=== PATIENT | male | born 1995 | race Caucasian/White ===

== ENCOUNTER 2017-02-17 11:20 | Emergency (ER) | payer SELFPAY ==
[~2017-02-17] VITALS: Ht 170.2 cm; Wt 99.8 kg
[~2017-02-17 11:20] MED LIST: CEPH-507 PO; HYDR-1231 PO; TRM50T PO; [UNRECOGNIZED DRUG - REMARK]
--- OUTSIDE RECORDS SUMMARY | 2017-02-17 11:27 | XMS REPORT | Continuity of Care Document ---
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 MIGRAINOSUS 07/31/2011 BERYL HINOJOSA DO K 346.10 MIGRAINE WITHOUT AURA WITHOUT MENTION OF INTRACTABLE MIGRAINE WITHOUT MENTION OF STATUS MIGRAINOSUS 07/31/2011 CHERELLE VALENZUELA MD 346.10 MIGRAINE WITHOUT AURA WITHOUT MENTION OF INTRACTABLE MIGRAINE WITHOUT MENTION OF STATUS MIGRAINOSUS 09/29/2011 300.00 ANXIETY UNSPEC 09/29/2011 719.46 KNEE PAIN 09/29/2011 300.00 ANXIETY UNSPEC 09/29/2011 719.46 KNEE PAIN 09/29/2011 HINOJOSA DOMALIHAA K 300.00 ANXIETY UNSPEC 09/29/2011 HINOJOSA DO BERYL K 719.46 KNEE PAIN 09/29/2011 BARI CANO APRN R 300.00 ANXIETY UNSPEC 09/29/2011 BARI CANO APRN R 719.46 KNEE PAIN 09/29/2011 BERYL HINOJOSA DO K 300.00 ANXIETY UNSPEC 09/29/2011 HINOJOSA MALIHA STONERA K 719.46 KNEE PAIN 09/29/2011 ERIC CANCHOLA APRN R 300.00 ANXIETY UNSPEC 09/29/2011 JESIKA DIRECTOR OF HOUSING AND ENERGY SERVICES, ERIC R 719.46 KNEE PAIN 09/29/2011 CARLYN JOHNSON DIRECTOR OF HOUSING AND ENERGY SERVICES, JHONNY N 300.00 ANXIETY UNSPEC 09/29/2011 CARLYN JOHNSON DIRECTOR OF HOUSING AND ENERGY SERVICES, JHONNY N 719.46 KNEE PAIN 09/29/2011 JESIKA DIRECTOR OF HOUSING AND ENERGY SERVICES, ERIC R 300.00 ANXIETY UNSPEC 09/29/2011 JESIKA DIRECTOR OF HOUSING AND ENERGY SERVICES, ERIC R 719.46 KNEE PAIN 09/29/2011 MADL DIRECTOR OF HOUSING AND ENERGY SERVICES, YANICK L 300.00 ANXIETY UNSPEC 09/29/2011 MADL DIRECTOR OF HOUSING AND ENERGY SERVICES, YANICK L 719.46 KNEE PAIN 09/29/2011 RACHAEL DIRECTOR OF HOUSING AND ENERGY SERVICES, BARI R 300.00 ANXIETY UNSPEC 09/29/2011 CANO DIRECTOR OF HOUSING AND ENERGY SERVICES, BARI R 719.46 KNEE PAIN 09/29/2011 LIANGL DIRECTOR OF HOUSING AND ENERGY SERVICES, YANICK L 300.00 ANXIETY UNSPEC 09/29/2011 LIANGL DIRECTOR OF HOUSING AND ENERGY SERVICES, YANICK L 719.46 KNEE PAIN 09/29/2011 ASHISH STONER BERYL K 300.00 ANXIETY UNSPEC 09/29/2011 ASHISH STONER BERYL K 719.46 KNEE PAIN 09/29/2011 CHERELLE VALENZUELA MD 300.00 ANXIETY UNSPEC 09/29/2011 CHERELLE VALENZUELA MD 719.46 KNEE PAIN 10/02/2011 008.8 INTESTINAL INFECTION DUE TO OTHER ORGANISM NOT ELSEWHERE CLASSIFIED 10/02/2011 008.8 INTESTINAL INFECTION DUE TO OTHER ORGANISM NOT ELSEWHERE CLASSIFIED 10/02/2011 ASHISH STONER BERYL K 008.8 INTESTINAL INFECTION DUE TO OTHER ORGANISM NOT ELSEWHERE CLASSIFIED 10/02/2011 REJI CANO APRNRICIA R 008.8 INTESTINAL INFECTION DUE TO OTHER ORGANISM NOT ELSEWHERE CLASSIFIED 10/02/2011 ASHISH STONER, BERYL K 008.8 INTESTINAL INFECTION DUE TO OTHER ORGANISM NOT ELSEWHERE CLASSIFIED 10/02/2011 JESIKA GRAHAMN ERIC R 008.8 INTESTINAL INFECTION DUE TO OTHER ORGANISM NOT ELSEWHERE CLASSIFIED 10/02/2011 ALCOCERKIM JOHNSON DIRECTOR OF HOUSING AND ENERGY SERVICES, JHONNY N 008.8 INTESTINAL INFECTION DUE TO OTHER ORGANISM NOT ELSEWHERE CLASSIFIED 10/02/2011 JESIKA GRAHAMN ERIC R 008.8 INTESTINAL INFECTION DUE TO OTHER ORGANISM NOT ELSEWHERE CLASSIFIED 10/02/2011 ISABELA DIRECTOR OF HOUSING AND ENERGY SERVICESGRISEL ClarkA L 008.8 INTESTINAL INFECTION DUE TO OTHER ORGANISM NOT ELSEWHERE CLASSIFIED 10/02/2011 DELICIA CANO APRNIA R 008.8 INTESTINAL INFECTION DUE TO OTHER ORGANISM NOT ELSEWHERE CLASSIFIED 10/02/2011 MADL DIRECTOR OF HOUSING AND ENERGY SERVICES, YANICK L 008.8 INTESTINAL INFECTION DUE TO OTHER ORGANISM NOT ELSEWHERE CLASSIFIED 10/02/2011 HINOJOSA DO, BERYL K 008.8 INTESTINAL INFECTION DUE TO OTHER ORGANISM NOT ELSEWHERE CLASSIFIED 10/02/2011 CHERELLE VALENZUELA MD 008.8 INTESTINAL INFECTION DUE TO OTHER ORGANISM NOT ELSEWHERE CLASSIFIED 12/10/2011 477.0 ALLERGIC RHINITIS DUE TO POLLEN 12/10/2011 477.0 ALLERGIC RHINITIS DUE TO POLLEN 12/10/2011 HINOJOSA DO, BERYL K 477.0 ALLERGIC RHINITIS DUE TO POLLEN 12/10/2011 RACHAEL DIRECTOR OF HOUSING AND ENERGY SERVICES, BARI R 477.0 ALLERGIC RHINITIS DUE TO POLLEN 12/10/2011 HINOJOSA DO, BERYL K 477.0 ALLERGIC RHINITIS DUE TO POLLEN 12/10/2011 JESIKA GARCÍA, ERIC R 477.0 ALLERGIC RHINITIS DUE TO POLLEN 12/10/2011 CARLYN JOHNSON APRN, JHONNY N 477.0 ALLERGIC RHINITIS DUE TO POLLEN 12/10/2011 JESIKA GARCÍA, ERIC R 477.0 ALLERGIC RHINITIS DUE TO POLLEN 12/10/2011 ISABELA DIRECTOR OF HOUSING AND ENERGY SERVICES, YANICK L 477.0 ALLERGIC RHINITIS DUE TO POLLEN 12/10/2011 RACHAEL DIRECTOR OF HOUSING AND ENERGY SERVICESREJI ClarkBARI R 477.0 ALLERGIC RHINITIS DUE TO POLLEN 12/10/2011 LIANGL DIRECTOR OF HOUSING AND ENERGY SERVICES, YANICK L 477.0 ALLERGIC RHINITIS DUE TO POLLEN 12/10/2011 HINOJOSA DO, BERYL K 477.0 ALLERGIC RHINITIS DUE TO POLLEN 12/10/2011 CHERELLE VALENZUELA MD 477.0 ALLERGIC RHINITIS DUE TO POLLEN 12/14/2011 789.00 ABDOMINAL PAIN UNSPECIFIED SITE 12/14/2011 789.00 ABDOMINAL PAIN UNSPECIFIED SITE 12/14/2011 HINOJOSA DO, BERYL K 789.00 ABDOMINAL PAIN UNSPECIFIED SITE 12/14/2011 REJI CANO APRNRICIA R 789.00 ABDOMINAL PAIN UNSPECIFIED SITE 12/14/2011 HINOJOSA DO, BERYL K 789.00 ABDOMINAL PAIN UNSPECIFIED SITE 12/14/2011 JESIKA GARCÍA, ERIC R 789.00 ABDOMINAL PAIN UNSPECIFIED SITE 12/14/2011 CARLYN JOHNSON APRN, JHONNY N 789.00 ABDOMINAL PAIN UNSPECIFIED SITE 12/14/2011 JESIKA GARCÍA, ERIC R 789.00 ABDOMINAL PAIN UNSPECIFIED SITE 12/14/2011 LIANGL DIRECTOR OF HOUSING AND ENERGY SERVICES, YANICK L 789.00 ABDOMINAL PAIN UNSPECIFIED SITE 12/14/2011 DELICIA CANO APRNIA R 789.00 ABDOMINAL PAIN UNSPECIFIED SITE 12/14/2011 MADL DIRECTOR OF HOUSING AND ENERGY SERVICES, YANICK L 789.00 ABDOMINAL PAIN UNSPECIFIED SITE 12/14/2011 HINOJOSA DO, BERYL K 789.00 ABDOMINAL PAIN UNSPECIFIED SITE 12/14/2011 NICOLAS CRAMER, CHERELLE 789.00 ABDOMINAL PAIN UNSPECIFIED SITE 04/27/2012 372.30 CONJUNCTIVITIS UNSPECIFIED 04/27/2012 465.9 UPPER RESPIRATORY INFECTION 04/27/2012 372.30 CONJUNCTIVITIS UNSPECIFIED 04/27/2012 465.9 UPPER RESPIRATORY INFECTION 04/27/2012 HINOJOSA DO, BERYL K 372.30 CONJUNCTIVITIS UNSPECIFIED 04/27/2012 HINOJOSA DO, BERYL K 465.9 UPPER RESPIRATORY INFECTION 04/27/2012 REJI CANO APRNRICIA R 372.30 CONJUNCTIVITIS UNSPECIFIED 04/27/2012 REJI CANO APRNRICIA R 465.9 UPPER RESPIRATORY INFECTION 04/27/2012 HINOJOSA DO, BERYL K 372.30 CONJUNCTIVITIS UNSPECIFIED 04/27/2012 HINOJOSA DO, BERYL K 465.9 UPPER RESPIRATORY INFECTION 04/27/2012 JESIKA DIRECTOR OF HOUSING AND ENERGY SERVICES, ERIC R 372.30 CONJUNCTIVITIS UNSPECIFIED 04/27/2012 JESIKA DIRECTOR OF HOUSING AND ENERGY SERVICES, ERIC R 465.9 UPPER RESPIRATORY INFECTION 04/27/2012 ALCOCERKIM BARTLETTERO DIRECTOR OF HOUSING AND ENERGY SERVICES, JHONNY N 372.30 CONJUNCTIVITIS UNSPECIFIED 04/27/2012 ALCOCER TRIERO DIRECTOR OF HOUSING AND ENERGY SERVICES, JHONNY N 465.9 UPPER RESPIRATORY INFECTION 04/27/2012 JESIKA DIRECTOR OF HOUSING AND ENERGY SERVICES, ERIC R 372.30 CONJUNCTIVITIS UNSPECIFIED 04/27/2012 JESIKA DIRECTOR OF HOUSING AND ENERGY SERVICES, ERIC R 465.9 UPPER RESPIRATORY INFECTION 04/27/2012 ISABELA DIRECTOR OF HOUSING AND ENERGY SERVICES, YANICK L 372.30 CONJUNCTIVITIS UNSPECIFIED 04/27/2012 ISABELA GARCÍA, YANICK L 465.9 UPPER RESPIRATORY INFECTION 04/27/2012 RACHAEL GARCÍA BARI R 372.30 CONJUNCTIVITIS UNSPECIFIED 04/27/2012 RACHAEL GARCÍA BARI R 465.9 UPPER RESPIRATORY INFECTION 04/27/2012 OXANA MAR APRNWNYA L 372.30 CONJUNCTIVITIS UNSPECIFIED 04/27/2012 MADL DIRECTOR OF HOUSING AND ENERGY SERVICES, YANICK L 465.9 UPPER RESPIRATORY INFECTION 04/27/2012 HINOJOSA DO, BERYL K 372.30 CONJUNCTIVITIS UNSPECIFIED 04/27/2012 HINOJOSA DO, BERYL K 465.9 UPPER RESPIRATORY INFECTION 04/27/2012 NICOLAS CRAMER, CHERELLE 372.30 CONJUNCTIVITIS UNSPECIFIED 04/27/2012 NICOLAS CRAMER, CHERELLE 465.9 UPPER RESPIRATORY INFECTION 05/26/2012 787.01 NAUSEA WITH VOMITING 05/26/2012 787.91 DIARRHEA 05/26/2012 787.01 NAUSEA WITH VOMITING 05/26/2012 787.91 DIARRHEA 05/26/2012 HINOJOSA DO, BERYL K 787.01 NAUSEA WITH VOMITING 05/26/2012 HINOJOSA DO, BERYL K 787.91 DIARRHEA 05/26/2012 RACHAEL DIRECTOR OF HOUSING AND ENERGY SERVICES BARI R 787.01 NAUSEA WITH VOMITING 05/26/2012 RACHAEL GARCÍA BARI R 787.91 DIARRHEA 05/26/2012 HINOJOSA DO, BERYL K 787.01 NAUSEA WITH VOMITING 05/26/2012 HINOJOSA DO, BERYL K 787.91 DIARRHEA 05/26/2012 JESIKA DIRECTOR OF HOUSING AND ENERGY SERVICES, ERIC R 787.01 NAUSEA WITH VOMITING 05/26/2012 JESIKA DIRECTOR OF HOUSING AND ENERGY SERVICES, ERIC R 787.91 DIARRHEA 05/26/2012 ALCOCER TRIERO DIRECTOR OF HOUSING AND ENERGY SERVICES, JHONNY N 787.01 NAUSEA WITH VOMITING 05/26/2012 ALCOCER CASHERO DIRECTOR OF HOUSING AND ENERGY SERVICES, JHONNY N 787.91 DIARRHEA 05/26/2012 JESIKA DIRECTOR OF HOUSING AND ENERGY SERVICES, ERIC R 787.01 NAUSEA WITH VOMITING 05/26/2012 JESIKA DIRECTOR OF HOUSING AND ENERGY SERVICES ERIC R 787.91 DIARRHEA 05/26/2012 MADL DIRECTOR OF HOUSING AND ENERGY SERVICES, YANICK L 787.01 NAUSEA WITH VOMITING 05/26/2012 MADL DIRECTOR OF HOUSING AND ENERGY SERVICES, YANICK L 787.91 DIARRHEA 05/26/2012 RACHAEL DIRECTOR OF HOUSING AND ENERGY SERVICES BARI R 787.01 NAUSEA WITH VOMITING 05/26/2012 RACHAEL GARCÍA BARI R 787.91 DIARRHEA 05/26/2012 MADL DIRECTOR OF HOUSING AND ENERGY SERVICES, YANICK L 787.01 NAUSEA WITH VOMITING 05/26/2012 MADL DIRECTOR OF HOUSING AND ENERGY SERVICES, YANICK L 787.91 DIARRHEA 05/26/2012 HINOJOSA DO, BERYL K 787.01 NAUSEA WITH VOMITING 05/26/2012 HINOJOSA DO, BERYL K 787.91 DIARRHEA 05/26/2012 NICOLAS CRAMER, CHERELLE 787.01 NAUSEA WITH VOMITING 05/26/2012 NICOLAS CRAMER, CHERELLE 787.91 DIARRHEA 06/24/2012 462 PHARYNGITIS ACUTE 06/24/2012 466.0 BRONCHITIS, ACUTE 06/24/2012 462 PHARYNGITIS ACUTE 06/24/2012 466.0 BRONCHITIS, ACUTE 06/24/2012 HINOJOSA DO, BERYL K 462 PHARYNGITIS ACUTE 06/24/2012 HINOJOSA DO, BERYL K 466.0 BRONCHITIS, ACUTE 06/24/2012 CANO DIRECTOR OF HOUSING AND ENERGY SERVICES, BARI R 462 PHARYNGITIS ACUTE 06/24/2012 CANO DIRECTOR OF HOUSING AND ENERGY SERVICES, BARI R 466.0 BRONCHITIS, ACUTE 06/24/2012 HINOJOSA DO, BERYL K 462 PHARYNGITIS ACUTE 06/24/2012 HINOJOSA DO, BERYL K 466.0 BRONCHITIS, ACUTE 06/24/2012 JESIKA DIRECTOR OF HOUSING AND ENERGY SERVICES, ERIC R 462 PHARYNGITIS ACUTE 06/24/2012 JESIKA DIRECTOR OF HOUSING AND ENERGY SERVICES, ERIC R 466.0 BRONCHITIS, ACUTE 06/24/2012 ALCOCER CASHERO DIRECTOR OF HOUSING AND ENERGY SERVICES, JHONNY N 462 PHARYNGITIS ACUTE 06/24/2012 ALCOECR CASHERO DIRECTOR OF HOUSING AND ENERGY SERVICES, JHONNY N 466.0 BRONCHITIS, ACUTE 06/24/2012 JESIKA DIRECTOR OF HOUSING AND ENERGY SERVICES, ERIC R 462 PHARYNGITIS ACUTE 06/24/2012 JESIKA DIRECTOR OF HOUSING AND ENERGY SERVICES, ERIC R 466.0 BRONCHITIS, ACUTE 06/24/2012 MADL DIRECTOR OF HOUSING AND ENERGY SERVICES, YANICK L 462 PHARYNGITIS ACUTE 06/24/2012 MADL DIRECTOR OF HOUSING AND ENERGY SERVICES, YANICK L 466.0 BRONCHITIS, ACUTE 06/24/2012 RACHAEL DIRECTOR OF HOUSING AND ENERGY SERVICES, BARI R 462 PHARYNGITIS ACUTE 06/24/2012 CANO DIRECTOR OF HOUSING AND ENERGY SERVICES, BARI R 466.0 BRONCHITIS, ACUTE 06/24/2012 MADL DIRECTOR OF HOUSING AND ENERGY SERVICES, YANICK L 462 PHARYNGITIS ACUTE 06/24/2012 MADL DIRECTOR OF HOUSING AND ENERGY SERVICES, YANICK L 466.0 BRONCHITIS, ACUTE 06/24/2012 HINOJOSA DO, BERYL K 462 PHARYNGITIS ACUTE 06/24/2012 HINOJOSA DO, BERYL K 466.0 BRONCHITIS, ACUTE 06/24/2012 NICOLAS CRAMER, CHERELLE 462 PHARYNGITIS ACUTE 06/24/2012 NICOLAS CRAMER, CHERELLE 466.0 BRONCHITIS, ACUTE 07/10/2012 Ot 786.50 07/10/2012 Ot 786.52 07/11/2012 733.6 TIETZE'S DISEASE 07/11/2012 733.6 TIETZE'S DISEASE 07/11/2012 HINOJOSA DO BERYL K 733.6 TIETZE'S DISEASE 07/11/2012 RACHAEL DIRECTOR OF HOUSING AND ENERGY SERVICES, BARI R 733.6 TIETZE'S DISEASE 07/11/2012 HINOJOSA DO BERYL K 733.6 TIETZE'S DISEASE 07/11/2012 JESIKA DIRECTOR OF HOUSING AND ENERGY SERVICES, ERIC R 733.6 TIETZE'S DISEASE 07/11/2012 CARLYN JOHNSON DIRECTOR OF HOUSING AND ENERGY SERVICES, JHONNY N 733.6 TIETZE'S DISEASE 07/11/2012 JESIKA DIRECTOR OF HOUSING AND ENERGY SERVICES, ERIC R 733.6 TIETZE'S DISEASE 07/11/2012 MADL DIRECTOR OF HOUSING AND ENERGY SERVICES, YANICK L 733.6 TIETZE'S DISEASE 07/11/2012 REJI CANO APRNRICIA R 733.6 TIETZE'S DISEASE 07/11/2012 MADL DIRECTOR OF HOUSING AND ENERGY SERVICES, YANICK L 733.6 TIETZE'S DISEASE 07/11/2012 MALIHA HINOJOSA DOA K 733.6 TIETZE'S DISEASE 07/11/2012 NICOLAS CRAMER, CHERELLE 733.6 TIETZE'S DISEASE 02/05/2013 ANGY DURÁN Ot 692.71 05/01/2013 305.1 TOBACCO ABUSE 05/01/2013 461.9 SINUSITIS ACUTE 05/01/2013 786.2 COUGH 05/01/2013 MALIHA HINOJOSA DOA K 305.1 TOBACCO ABUSE 05/01/2013 MALIHA HINOJOSA DOA K 461.9 SINUSITIS ACUTE 05/01/2013 HINOJOSA DO BERYL K 786.2 COUGH 05/01/2013 BARI CANO APRN R 305.1 TOBACCO ABUSE 05/01/2013 BARI CANO APRN R 461.9 SINUSITIS ACUTE 05/01/2013 REJI CANO APRNRICIA R 786.2 COUGH 05/01/2013 ASHISH STONER BERYL K 305.1 TOBACCO ABUSE 05/01/2013 ASHISH STONER BERYL K 461.9 SINUSITIS ACUTE 05/01/2013 HINOJOSA DO, BERYL K 786.2 COUGH 05/01/2013 JESIKA DIRECTOR OF HOUSING AND ENERGY SERVICES, ERIC R 305.1 TOBACCO ABUSE 05/01/2013 JESIKA DIRECTOR OF HOUSING AND ENERGY SERVICES, ERIC R 461.9 SINUSITIS ACUTE 05/01/2013 JESIKA DIRECTOR OF HOUSING AND ENERGY SERVICES, ERIC R 786.2 COUGH 05/01/2013 ALCOCER CASHERO DIRECTOR OF HOUSING AND ENERGY SERVICES, JHONNY N 305.1 TOBACCO ABUSE 05/01/2013 ALCOCER CASHERO DIRECTOR OF HOUSING AND ENERGY SERVICES, JHONNY N 461.9 SINUSITIS ACUTE 05/01/2013 ALCOCER CASHERO DIRECTOR OF HOUSING AND ENERGY SERVICES, JHONNY N 786.2 COUGH 05/01/2013 JESIKA DIRECTOR OF HOUSING AND ENERGY SERVICES, ERIC R 305.1 TOBACCO ABUSE 05/01/2013 JESIKA DIRECTOR OF HOUSING AND ENERGY SERVICES, ERIC R 461.9 SINUSITIS ACUTE 05/01/2013 JESIKA DIRECTOR OF HOUSING AND ENERGY SERVICES, ERIC R 786.2 COUGH 05/01/2013 MADL DIRECTOR OF HOUSING AND ENERGY SERVICES, YANICK L 305.1 TOBACCO ABUSE 05/01/2013 MADL DIRECTOR OF HOUSING AND ENERGY SERVICES, YANICK L 461.9 SINUSITIS ACUTE 05/01/2013 MADL DIRECTOR OF HOUSING AND ENERGY SERVICES, YANICK L 786.2 COUGH 05/01/2013 CANO DIRECTOR OF HOUSING AND ENERGY SERVICES, BARI R 305.1 TOBACCO ABUSE 05/01/2013 CANO DIRECTOR OF HOUSING AND ENERGY SERVICES, BARI R 461.9 SINUSITIS ACUTE 05/01/2013 CANO DIRECTOR OF HOUSING AND ENERGY SERVICES, BARI R 786.2 COUGH 05/01/2013 MADL DIRECTOR OF HOUSING AND ENERGY SERVICES, YANICK L 305.1 TOBACCO ABUSE 05/01/2013 MADL DIRECTOR OF HOUSING AND ENERGY SERVICES, YANICK L 461.9 SINUSITIS ACUTE 05/01/2013 MADL DIRECTOR OF HOUSING AND ENERGY SERVICES, YANICK L 786.2 COUGH 05/01/2013 HINOJOSA DO, BERYL K 305.1 TOBACCO ABUSE 05/01/2013 HINOJOSA DO, BERYL K 461.9 SINUSITIS ACUTE 05/01/2013 HINOJOSA DO, BERYL K 786.2 COUGH 07/24/2013 CANO DIRECTOR OF HOUSING AND ENERGY SERVICES, BARI R 380.4 CERUMEN IMPACTION 07/24/2013 HINOOJSA DO, BERYL K 380.4 CERUMEN IMPACTION 07/24/2013 JESIKA DIRECTOR OF HOUSING AND ENERGY SERVICES, ERIC R 380.4 CERUMEN IMPACTION 07/24/2013 ALCOCER TRIERO DIRECTOR OF HOUSING AND ENERGY SERVICES, JHONNY N 380.4 CERUMEN IMPACTION 07/24/2013 JESIKA DIRECTOR OF HOUSING AND ENERGY SERVICES, ERIC R 380.4 CERUMEN IMPACTION 07/24/2013 GRISEL MAR APRNA L 380.4 CERUMEN IMPACTION 07/24/2013 BARI CANO APRN R 380.4 CERUMEN IMPACTION 07/24/2013 MADL DIRECTOR OF HOUSING AND ENERGY SERVICES, YANICK L 380.4 CERUMEN IMPACTION 07/24/2013 HINOJOSA DO, BERYL K 380.4 CERUMEN IMPACTION 12/01/2013 HINOJOSA DO, BERYL K 293.84 ANXIETY DISORDER IN CONDITIONS CLASSIFIED ELSEWHERE 12/01/2013 HINOJOSA DO, BERYL K 346.90 MIGRAINE UNSPECIFIED WITHOUT MENTION OF INTRACTABLE MIGRAINE WITHOUT MENTION OF STATUS MIGRAINOSUS 12/01/2013 HINOJOSA DO, BERYL K 799.22 IRRITABILITY 12/01/2013 STEPHANIE CANCHOLA APRNINA R 293.84 ANXIETY DISORDER IN CONDITIONS CLASSIFIED ELSEWHERE 12/01/2013 ERIC CANCHOLA APRN R 346.90 MIGRAINE UNSPECIFIED WITHOUT MENTION OF INTRACTABLE MIGRAINE WITHOUT MENTION OF STATUS MIGRAINOSUS 12/01/2013 STEPHANIE CANCHOLA APRNINA R 799.22 IRRITABILITY 12/01/2013 JHONNY ESPINOSA APRN N 293.84 ANXIETY DISORDER IN CONDITIONS CLASSIFIED ELSEWHERE 12/01/2013 BOBBY ESPINOSA APRNCY N 346.90 MIGRAINE UNSPECIFIED WITHOUT MENTION OF INTRACTABLE MIGRAINE WITHOUT MENTION OF STATUS MIGRAINOSUS 12/01/2013 BOBBY ESPINOSA APRNCY N 799.22 IRRITABILITY 12/01/2013 STEPHANIE CANCHOLA APRNINA R 293.84 ANXIETY DISORDER IN CONDITIONS CLASSIFIED ELSEWHERE 12/01/2013 STEPHANIE CANCHOLA APRNINA R 346.90 MIGRAINE UNSPECIFIED WITHOUT MENTION OF INTRACTABLE MIGRAINE WITHOUT MENTION OF STATUS MIGRAINOSUS 12/01/2013 STEPHANIE CANCHOLA APRNINA R 799.22 IRRITABILITY 12/01/2013 GRISEL MAR APRNA L 293.84 ANXIETY DISORDER IN CONDITIONS CLASSIFIED ELSEWHERE 12/01/2013 GRISEL MAR APRNA L 346.90 MIGRAINE UNSPECIFIED WITHOUT MENTION OF INTRACTABLE MIGRAINE WITHOUT MENTION OF STATUS MIGRAINOSUS 12/01/2013 NARA MAR APRNNYA L 799.22 IRRITABILITY 12/01/2013 BARI CANO APRN R 293.84 ANXIETY DISORDER IN CONDITIONS CLASSIFIED ELSEWHERE 12/01/2013 BARI CANO APRN R 346.90 MIGRAINE UNSPECIFIED WITHOUT MENTION OF INTRACTABLE MIGRAINE WITHOUT MENTION OF STATUS MIGRAINOSUS 12/01/2013 CANO DIRECTOR OF HOUSING AND ENERGY SERVICES, BARI R 799.22 IRRITABILITY 12/01/2013 MADL DIRECTOR OF HOUSING AND ENERGY SERVICES, YANICK L 293.84 ANXIETY DISORDER IN CONDITIONS CLASSIFIED ELSEWHERE 12/01/2013 MADL DIRECTOR OF HOUSING AND ENERGY SERVICES, YANICK L 346.90 MIGRAINE UNSPECIFIED WITHOUT MENTION OF INTRACTABLE MIGRAINE WITHOUT MENTION OF STATUS MIGRAINOSUS 12/01/2013 MADL DIRECTOR OF HOUSING AND ENERGY SERVICES, YANICK L 799.22 IRRITABILITY 12/01/2013 HINOJOSA , BERYL K 293.84 ANXIETY DISORDER IN CONDITIONS CLASSIFIED ELSEWHERE 12/01/2013 HINOJOSA DO, BERYL K 346.90 MIGRAINE UNSPECIFIED WITHOUT MENTION OF INTRACTABLE MIGRAINE WITHOUT MENTION OF STATUS MIGRAINOSUS 12/01/2013 ASHISH STONER, BERYL K 799.22 IRRITABILITY 05/08/2014 JESIKA GARCÍA, ERIC R 462 PHARYNGITIS ACUTE 05/08/2014 JESIKA GARCÍA, ERIC R 786.2 COUGH 05/08/2014 CARLYN JOHNSON APRN, JHONNY N 462 PHARYNGITIS ACUTE 05/08/2014 CARLYN JOHNSON APRN, JHONNY N 786.2 COUGH 05/08/2014 JESIKA GARCÍA, ERIC R 462 PHARYNGITIS ACUTE 05/08/2014 JESIKA GRAHAMN, ERIC R 786.2 COUGH 05/08/2014 MADL DIRECTOR OF HOUSING AND ENERGY SERVICES, YANICK L 462 PHARYNGITIS ACUTE 05/08/2014 MADL DIRECTOR OF HOUSING AND ENERGY SERVICES, YANICK L 786.2 COUGH 05/08/2014 REJI CANO APRNRICIA R 462 PHARYNGITIS ACUTE 05/08/2014 RACHAEL GARCÍA BARI R 786.2 COUGH 05/08/2014 MADL DIRECTOR OF HOUSING AND ENERGY SERVICES, YANICK L 462 PHARYNGITIS ACUTE 05/08/2014 MADL DIRECTOR OF HOUSING AND ENERGY SERVICES, YANICK L 786.2 COUGH 05/08/2014 HINOJOSA DO, BERYL K 462 PHARYNGITIS ACUTE 05/08/2014 ASHISH STONER, BERYL K 786.2 COUGH 05/29/2014 CARLYN JOHNSON DIRECTOR OF HOUSING AND ENERGY SERVICES, JHONNY N 388.70 OTALGIA UNSPECIFIED 05/29/2014 JESIKA GARCÍA, ERIC R 388.70 OTALGIA UNSPECIFIED 05/29/2014 MADL DIRECTOR OF HOUSING AND ENERGY SERVICES, YANICK L 388.70 OTALGIA UNSPECIFIED 05/29/2014 RACHAEL GARCÍA BARI R 388.70 OTALGIA UNSPECIFIED 05/29/2014 MADL DIRECTOR OF HOUSING AND ENERGY SERVICES, YANICK L 388.70 OTALGIA UNSPECIFIED 05/29/2014 HINOJOSA DO, BERYL K 388.70 OTALGIA UNSPECIFIED 06/06/2014 JESIKA DIRECTOR OF HOUSING AND ENERGY SERVICES, ERIC R 461.9 ACUTE SINUSITIS UNSPECIFIED 06/06/2014 JESIKA DIRECTOR OF HOUSING AND ENERGY SERVICES, ERIC R 787.01 NAUSEA WITH VOMITING 06/06/2014 JESIKA DIRECTOR OF HOUSING AND ENERGY SERVICES, ERIC R 787.91 DIARRHEA 06/06/2014 MADL DIRECTOR OF HOUSING AND ENERGY SERVICES, YANICK L 461.9 ACUTE SINUSITIS UNSPECIFIED 06/06/2014 MADL DIRECTOR OF HOUSING AND ENERGY SERVICES, YANICK L 787.01 NAUSEA WITH VOMITING 06/06/2014 MADL DIRECTOR OF HOUSING AND ENERGY SERVICES, YANICK L 787.91 DIARRHEA 06/06/2014 CANO DIRECTOR OF HOUSING AND ENERGY SERVICES, BARI R 461.9 ACUTE SINUSITIS UNSPECIFIED 06/06/2014 CANO DIRECTOR OF HOUSING AND ENERGY SERVICES, BARI R 787.01 NAUSEA WITH VOMITING 06/06/2014 RACHAEL GARCÍA BARI R 787.91 DIARRHEA 06/06/2014 MADL DIRECTOR OF HOUSING AND ENERGY SERVICES, YANICK L 461.9 ACUTE SINUSITIS UNSPECIFIED 06/06/2014 MADL DIRECTOR OF HOUSING AND ENERGY SERVICES, YANICK L 787.01 NAUSEA WITH VOMITING 06/06/2014 MADL DIRECTOR OF HOUSING AND ENERGY SERVICES, YANICK L 787.91 DIARRHEA 06/06/2014 HINOJOSA DO, BERYL K 461.9 ACUTE SINUSITIS UNSPECIFIED 06/06/2014 HINOJOSA DO, BERYL K 787.01 NAUSEA WITH VOMITING 06/06/2014 HINOJOSA DO, BERYL K 787.91 DIARRHEA 11/12/2014 RACHAEL GARCÍA BARI R 465.9 UPPER RESPIRATORY INFECTION 11/12/2014 [facility] DIRECTOR OF HOUSING AND ENERGY SERVICES, YANICK L 465.9 UPPER RESPIRATORY INFECTION 11/12/2014 HINOJOSA DO, BERYL K 465.9 UPPER RESPIRATORY INFECTION 11/14/2014 [facility] DIRECTOR OF HOUSING AND ENERGY SERVICES, YANICK L 780.52 INSOMNIA UNSPECIFIED 11/14/2014 HINOJOSA DO, BERYL K 780.52 INSOMNIA UNSPECIFIED 11/20/2014 RISHABH CRAMER, LORETTA Sellers Ot 814.01 11/20/2014 RISHABH CRAMER, LORETTA Sellers Ot 959.3 11/20/2014 RISHABH CRAMER, LORETTA Sellers Ot E000.8 11/20/2014 RISHABH CRAMER, LORETTA Sellers Ot E006.0 11/20/2014 RISHABH CRAMER, LORETTA Sellers Ot E849.4 11/20/2014 RISHABH CRAMER, LORETTA Sellers Ot E885.2 11/22/2014 BERYL HINOJOSA DO 814.02 CLOSED FRACTURE OF LUNATE (SEMILUNAR) BONE OF WRIST 04/27/2015 DENA RODRÍGUEZ DIRECTOR OF HOUSING AND ENERGY SERVICES Ot 882.0 04/27/2015 DENA RODRÍGUEZ APRN Ot E000.8 04/27/2015 DENA RODRÍGUEZ APRN Ot E849.8 04/27/2015 DENA RODRÍGUEZ APRN Ot E920.9 Procedures Code Description [place] [address] STREP A (IN-HOUSE) 06/24/2012 76678 STREP A (IN-HOUSE) 07/24/2013 26225 OXIMETRY 2013 79094 ROUTINE VENIPUNCTURE 06/06/2014 11323 SED/ESR RATE (IN HOUSE) 06/06/2014 26790 CBC 06/06/2014 95514 CMP 06/06/2014 04378 MYCOPLASMA ANTIBODY 06/07/2014 LETITIA GARNER 11/22/2014 Results Encounters ACCT No. Visit Date/Time Discharge Status Pt. Type Provider Facility Loc./Unit Complaint [id number] 11/22/2014 09:23:00 11/22/2014 23: 59:59 CLS Outpatient BERYL HINOJOSA DO Chrissy [id number] 11/14/2014 14:07:00 11/14/2014 23: 59:59 CLS Outpatient YANICK MAR APRN [id number] 11/12/2014 14:49:00 11/12/2014 23: 59:59 CLS Outpatient BARI CANO APRN [id number] 09/26/2014 13:31:00 09/26/2014 23: 59:59 CLS Outpatient YANICK MAR APRN [id number] 06/06/2014 13:23:00 06/06/2014 23: 59:59 CLS Outpatient ERIC CANCHOLA APRN [id number] 05/29/2014 10:40:00 05/29/2014 23: 59:59 CLS Outpatient JHONNY ESPINOSA APRN [id number] 05/08/2014 09:53:00 05/08/2014 23: 59:59 CLS Outpatient ERIC CANCHOLA APRN [id number] 12/01/2013 15:03:00 12/01/2013 23: 59:59 CLS Outpatient BERYL HINOJOSA DO [id number] 07/24/2013 12:55:00 07/24/2013 23: 59:59 CLS Outpatient BARI CANO APRN [id number] 06/20/2013 10:51:00 06/20/2013 23: 59:59 CLS Outpatient BERYL HINOJOSA DO [id number] 10/04/2012 14:43:00 10/04/2012 23: 59:59 CLS Outpatient [id number] 06/24/2012 09:33:00 06/24/2012 23:59: 59 CLS Outpatient CHERELLE VALENZUELA MD [id number] 05/01/2013 09:52:00 Document Registration
[2017-02-17] MEDS ORDERED: CEPH500C PO (12:12)
--- NOTE | 2017-02-17 12:14 | ED General ---
General Chief Complaint: Trauma-Non Activation Stated Complaint: STABBED SELF IN LEG Nursing Triage Note: patient reports was carving a stick and accidently stabbed himself in L thigh Nursing Sepsis Screen: No Definite Risk Source of Information: Patient, Family Exam Limitations: No Limitations History of Present Illness Time Seen by Provider: 12:00 Initial Comments 21-year-old male patient presents to the emergency department for complaints of stabbing himself in the left thigh while he was carving on a stick. Location Injury Occurred: home Timing/Duration: 1/2 Hour Modifying Factors: worse with Other (pain worse with palpation) Allergies and Home Medications Allergies Coded Allergies: No Known Drug Allergies (Unverified , 07/10/12) Home Medications Cephalexin 500 Mg Capsule, 500 MG PO TID, #21 Ref 0 Prescribed by: ANGY BIRCH on 02/17/17 1212 Constitutional: no symptoms reported Respiratory: no symptoms reported Cardiovascular: no symptoms reported Musculoskeletal: no symptoms reported Skin: see HPI, other (laceration left thigh) Psychiatric/Neurological: Denies Numbness, Denies Paresthesia, Denies Tingling , Denies Weakness All Other Systems Reviewed Negative Unless Noted: Yes (Negative excepted noted.) Past Gwhhmsr-Lcqwfm-Upksmt Hx Patient Social History Alcohol Use: Denies Use Recreational Drug Use: Yes Drug of Choice: THC Smoking Status: Current Everyday Smoker Type Used: Cigarettes Recent Foreign Travel: No Contact w/Someone Who Travel: No Recent Infectious Disease Expo: No Immunizations Up To Date Tetanus Booster (TDap): Less than 5yrs Surgeries HX Surgeries: No Respiratory Hx Respiratory Disorders: No Cardiovascular Hx Cardiac Disorders: No Neurological Hx Neurological Disorders: Yes Neurological Disorders: Headaches /Migraines Genitourinary Hx Genitourinary Disorders: No Gastrointestinal Hx Gastrointestinal Disorders: No Musculoskeletal Hx Musculoskeletal Disorders: No Endocrine Hx Endocrine Disorders: No Psychosocial Hx Psychiatric Problems: No Integumentary HX Skin/Integumentary Disorder: No Reviewed Nursing Assessment Reviewed/Agree w Nursing PMH: Yes Family Medical History Significant Family History: No Pertinent Family Hx Physical Exam Vital Signs Vital Sign - Last 12Hours 02/17/17 11:21 Temp 98.2 Pulse 105 Resp 18 B/P (MAP) 140/79 Pulse Ox 98 Capillary Refill : Less Than 3 Seconds General Appearance: No Apparent Distress, WD/WN Cardiovascular: No Edema, Normal Peripheral Pulses Extremity: Normal Capillary Refill, Normal Range of Motion, No Pedal Edema, Other (left distal anterior thigh shows a 1 cm laceration without active bleeding. Soft tissue tenderness noted.) Neurologic/Psychiatric: Alert, Oriented x3, No Motor/Sensory Deficits, Normal Mood/Affect Skin: Normal Color, Warm/Dry, Other (left distal anterior thigh shows a 1 cm laceration without active bleeding. Soft tissue tenderness noted.) Laceration Repair : Wound Location: Lower Extremities (left distal anterior thigh) Wound Length (cm): 1 Wound's Depth, Shape: superficial (1/2 inch depth of wound involving skin and SC), sub Q Wound Explored: contaminated Irrigated w/ Saline (ccs): 100 Betadine Prep?: Yes (wound scrubbed with chlorhexidine and sterile saline) Anesthesia: 1% Lidocaine Volume Anesthetic (ccs): 2 Suture: Prolene Suture Size: 4-0 Number of Sutures: 2 (skin edges loosely reapproximated) Layer Closure?: 1 Sterile Dressing Applied?: Yes Progress Blood loss minimal. Patient tolerated the procedure well. Progress/Results/Core Measures Results/Orders My Orders Orders - ANGY BIRCH Lidocaine 1% Injection (Xylocaine 1% Inj (02/17/17 12:15) Tramadol Tablet (Ultram Tablet) (02/17/17 13:14) Vital Signs/I&O Vital Sign - Last 12Hours 02/17/17 02/17/17 11:21 13:19 Temp 98.2 98.2 Pulse 105 105 Resp 18 18 B/P (MAP) 140/79 Pulse Ox 98 98 Blood Pressure Mean: 99 Departure Impression Impression: Primary Impression: Laceration of thigh, left Qualified Codes: S71.112A - Laceration without foreign body, left thigh, initial encounter Disposition: HOME, SELF-CARE Condition: Improved Departure-Patient Inst. Decision time for Depature: 12:11 Referrals: [facility] (PCP/Family) Primary Care Physician Patient Instructions: Laceration Repair Add. Discharge Instructions: All discharge instructions reviewed with patient and/or family. Voiced understanding. Medications as directed. Tylenol extra strength as directed for pain. Motrin 800 mg by mouth every 8 hours as needed for pain. Tomorrow morning begin showering with antibacterial soap. apply triple antibiotic ointment twice daily for 3 days. Follow-up your family practitioner for recheck if needed. Return to the emergency department for worsened pain, redness, fever, drainage, or any other concerns. Scripts Cephalexin (Cephalexin) 500 Mg Capsule 500 MG PO TID, #21 CAP 0 Refills Prov: ANGY BIRCH 02/17/17 ANGY BIRCH Feb 17, 2017 12:14
[2017-02-17] MEDS ORDERED: LIDOCAINE 1% INJ 20 ML (XYLOCAINE) VIAL INJ STA (12:15)
[2017-02-17 13:19] VITALS: BP 140/79
== END 2017-02-17 13:18 | disposition home or self-care (01) ==
LOC: EDUNIT# 11:20 → ER 11:21
DX: S81.819A Laceration without foreign body, unspecified lower leg, initial encounter (principal)
CPT/HCPCS: 12001